=== PATIENT | female | born 1990 | race Caucasian/White ===

== ENCOUNTER 2017-10-20 10:44 | Emergency (ER) | payer SELFPAY ==
[~2017-10-20] VITALS: Ht 160 cm; Wt 85.4 kg
[~2017-10-20 10:44] MED LIST: ADVIL,NUPRIN,M200 MG PO; AMOXICILLIN875 MG PO; FIORICET 50-301 EACH PO; KEFLEX500 MG PO; LORTAB 5-325 M1 EACH PO; NAPROSYN500 MG PO; PAROXETINE PO; PEN-VEE K,VEET500 MG PO; ZOFRAN ODT4 MG PO; ZOFRAN4 MG PO
[2017-10-20] MEDS ORDERED: AMOXICILLIN875 MG PO (11:04)
[2017-10-20] MEDS ORDERED: TESSALON200 MG PO (11:04)
[2017-10-20] MEDS ORDERED: PROAIR HFA8.5 GM IH (11:04)
[2017-10-20 11:20] VITALS: BP 129/72
== END 2017-10-20 11:21 | disposition home or self-care (01) ==
LOC: EME 10:44
DX: J06.9 Acute upper respiratory infection, unspecified (principal); J45.901 Unspecified asthma with (acute) exacerbation; K12.2 Cellulitis and abscess of mouth; F32.9 Major depressive disorder, single episode, unspecified; Z88.8 Allergy status to other drugs, medicaments and biological substances
CPT/HCPCS: 99281; 99284

== ENCOUNTER 2018-05-20 16:57 | Emergency (ER) | payer OTHER ==
[~2018-05-20] VITALS: Ht 165.1 cm; Wt 85.2 kg
[~2018-05-20 16:57] MED LIST changes: +PROAIR HFA8.5 GM IH; +TESSALON200 MG PO
[2018-05-20] MEDS ORDERED: MUCINEX D ER T1 EACH PO (18:35)
[2018-05-20] MEDS ORDERED: FLONASE16 G1 BOTH NARES (18:35)
[2018-05-20] MEDS ORDERED: VENTOLIN HFA18 GM IH (18:35)
[2018-05-20 18:49] VITALS: BP 126/71
== END 2018-05-20 18:52 | disposition home or self-care (01) ==
LOC: EME 16:57
DX: J01.90 Acute sinusitis, unspecified (principal); J30.9 Allergic rhinitis, unspecified; J20.9 Acute bronchitis, unspecified; F41.9 Anxiety disorder, unspecified; F32.9 Major depressive disorder, single episode, unspecified; Z90.49 Acquired absence of other specified parts of digestive tract; Z88.8 Allergy status to other drugs, medicaments and biological substances
CPT/HCPCS: 99281; 99283